=== PATIENT | female | born 1950 | race Caucasian/White ===

== ENCOUNTER 2017-04-13 18:38 | Inpatient (IN) | payer MEDICARE ==
[~2017-04-13] VITALS: Ht 162.5 cm; Wt 82.2 kg
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
--- NOTE | ~2017-04-13 | PR ---
[place], [place] PROGRESS NOTE [id number] UN[facility] #: [id number] ROOM: 310 DOCTOR: Shanda WASHINGTON,SORAIDA BIRTHDATE: [birth year] DOS: 04/20/2017 SUBJECTIVE: The patient seen and spoke with the staff. Per staff, the patient is doing okay, still somewhat paranoid and anxious, but is doing much better than before. She is coming out from her room more than in the past. The patient was in the day area. She said that she is feeling a "little better", looks a little relax, but still reports being paranoid, thinks people are talking about her and trying to harm her. She denied any side effects from the medication. She reports good sleep and appetite. MENTAL STATUS EXAMINATION: The patient was pleasant, cooperative, described her mood as "okay." Affect was flat, guarded. Thought process goal directed. No flight of ideas, loosening of association. She denied auditory or visual hallucination. She is still delusional, paranoid. She denied suicidal ideation, intent or plan. She also denied homicidal ideation, intent or plan. Insight and judgment poor to fair. ASSESSMENT: 1. Major depressive disorder, recurrent with psychotic features. 2. Rule out schizoaffective disorder. PLAN: 1. Continue current medication. Her Invega was increased yesterday. Seems to be doing well. We need to wait until the full effect of the medication. 2. Continue redirection. 3. Supportive care. SORAIDA WASHINGTON MD CM:PNTRANS [phone] Shanda WASHINGTON 04/21/17 1447 interface
--- NOTE | ~2017-04-13 | PR ---
[place], [place] PROGRESS NOTE NAME: CHELA JAIN UNIT #: [id number] ROOM: 310 DOCTOR: Shanda WASHINGTON,SORAIDA BIRTHDATE: [birth year] DOS: 04/17/2017 The patient seen and spoke with the staff. Per staff, the patient stays isolative, still paranoid, talks about and dying. The patient was in the day area. She said that she still feels paranoid, feels someone is planning to hurt her. She became very tearful in the process. She said that she is homeless, she does not have any place to go and she wants the team to help her in terms of her housing. She also is scared that someone may hurt her. She said that she has been taking her medication regularly and did not have any side effect. MENTAL STATUS EXAMINATION: The patient was pleasant, cooperative, tearful at times. Described her mood as "I don't know." Affect broad range. Thought process goal directed. No flight of ideas, loosening of association. She denied auditory or visual hallucination, but she is still delusional and paranoid. She denied suicidal ideation, intent or plan. She also denied homicidal ideation, intent or plan. ASSESSMENT: 1. Major depressive disorder, recurrent with psychotic feature. 2. Rule out schizoaffective disorder. PLAN: 1. Continue current medication and care. We have to give some time for the medication to start working in its full effect. 2. Continue redirection. 3. Supportive care. SORAIDA WASHINGTON MD CM:RAFAELA [phone] Shanda WASHINGTON 04/18/17 0205 interface
--- NOTE | ~2017-04-13 | PR ---
[place], [place] PROGRESS NOTE NAME: [facility]AIN [id number] UNIT #: [id number] ROOM: 310 DOCTOR: Shanda WASHINGTON,SORAIDA BIRTHDATE: [birth year] DOS: 04/19/2017 PSYCHIATRIC PROGRESS NOTE SUBJECTIVE: The patient seen and spoke with the staff. Per staff, the patient is still paranoid, at times, talked about people talking about her and they are following her. When I went to see the patient was in her room. She was doing a word puzzle. She said that she is not doing any good. She said that she feels like she is "possessed." She is taking her medication regularly. Still feels paranoid. She is delusional and she is upset about that fact. She denied any auditory or visual hallucination. MENTAL STATUS EXAMINATION: The patient was pleasant, cooperative. Described her mood as "not good." Affect was flat. Thought process goal directed. No flight of ideas, loosening of association. She denied auditory or visual hallucination. She is still delusional, paranoid. She denied suicidal ideation, intent or plan. She also denied homicidal ideation, intent or plan. Insight and judgment impaired. ASSESSMENT: Schizoaffective disorder, still psychotic and delusional. PLAN: 1. I will increase her Invega to 9 mg at night. 2. Continue other medication. 3. Continue redirection. SORAIDA WASHINGTON MD CM:RAFAELA [phone] Shanda WASHINGTON 04/20/17 0417 interface
--- NOTE | ~2017-04-13 | PR ---
[place], [place] PROGRESS NOTE [id number] UNIT #: [id number] ROOM: 310 DOCTOR: Shanda WASHINGTON,SORAIDA BIRTHDATE: [birth year] DOS: 04/25/2017 SUBJECTIVE: The patient seen and spoke with the staff. Per staff, the patient is doing well. Her mood is better. She is coming out more from her room and attending groups. Med compliant. The patient was pleasant and cooperative. She looks brighter. She was smiling. She said that "I am better, not anxious." She is still keep on saying that she do not know how she is feeling, but she acknowledges that she is much better than before and do not feel paranoid and not hearing voices anymore. She said her mood is better. Also, she reports good sleep and appetite. MENTAL STATUS EXAMINATION: Pleasant, cooperative. Described her mood as "better." Affect, mood congruent. Thought process goal directed. No flight of ideas, loosening of association. She denied auditory or visual hallucination. No delusion or paranoia noted. She denied suicidal ideation, intent or plan. She also denied any homicidal ideation, intent or plan. Insight and judgment fair. ASSESSMENT: 1. Major depressive disorder, recurrent with psychotic feature. 2. Rule out schizoaffective disorder. PLAN: 1. Continue current medication and care. 2. Continue redirection. 3. Supportive care. SORAIDA WASHINGTON MD CM:RAFAELA [phone] Shanda WASHINGTON 04/25/17 1304 interface
--- NOTE | ~2017-04-13 | PR ---
[place], [place] PROGRESS NOTE [facility]: [facility]AIN [id number] UNIT #: [id number] ROOM: 310 DOCTOR: Shanda WASHINGTON,SORAIDA BIRTHDATE: [birth year] DOS: 04/26/2017 SUBJECTIVE: The patient seen and spoke with the staff. Per staff, patient is doing well. No behavioral problems or issues. Much more interactive, med compliant. The patient was pleasant, cooperative. She was walking on the hallway, looks brighter and happier. She said that "I am same like yesterday." She denied any depressed mood or hopelessness. Denied any other neurovegetative signs or symptoms of depression. Denied any psychotic symptoms. Reports good sleep and appetite. MENTAL STATUS EXAMINATION: The patient was pleasant, cooperative. Described her mood as "good." Affect, mood congruent. Thought process goal-directed. No flight of ideas, loosening of association. She denied auditory or visual hallucination. No delusions or paranoia noted. She denied suicidal ideation, intent or plan. She also denied homicidal ideation, intent or plan. Insight and judgment fair. ASSESSMENT: 1. Major depressive disorder, recurrent with psychotic feature. 2. Schizophrenia, rule out schizoaffective disorder. PLAN: 1. Continue current medication and care. 2. Continue redirection. 3. Discharge planning. SORAIDA WASHINGTON MD CM:RAFAELA [phone] Shanda WASHINGTON 04/26/17 1448 interface
--- NOTE | ~2017-04-13 | PR ---
[place], [place] PROGRESS NOTE NAME: [id number] UNIT #: [id number] ROOM: 310 DOCTOR: Shanda WASHINGTON,SORAIDA BIRTHDATE: [birth year] DOS: 04/18/2017 PSYCHIATRIC PROGRESS NOTE SUBJECTIVE: The patient seen and spoke with the staff. Per staff, the patient slept well, but still paranoid and guarded and stayed to herself. The patient was pleasant, cooperative. She was actually at first in her room. She changed her clothes. Now, she is in a regular cloth. She said that "I don't know why it is happening to me." When I asked her to elaborate, she did not. She acknowledges that she still thinks something bad is going to happen and she does not know why she is feeling like that. She was not tearful or anxious today, though. She said that she is taking her medication regularly and did not have any side effect from the medication. She reports good sleep and appetite. MENTAL STATUS EXAMINATION: The patient was pleasant and cooperative. She described her mood as "okay." Affect was flat. Thought process goal directed. No flight of ideas, loosening of association. She denied auditory or visual hallucination. She is still delusional, paranoid. She denied suicidal ideation, intent or plan. She also denied homicidal ideation, intent or plan. Insight and judgment fair. ASSESSMENT: Major depressive disorder, recurrent with psychotic feature, rule out schizoaffective disorder. PLAN: 1. Continue current medication and care. 2. Continue redirection. 3. Encourage activity and groups. SORAIDA WASHINGTON MD CM:RAFAELA [phone] Shanda WASHINGTON 04/18/1732 interface
--- NOTE | ~2017-04-13 | DS ---
[place], [place] DISCHARGE SUMMARY [id number] UN[facility] #: [id number] ROOM: 310 DOCTOR: DALI MORENO BIRTHDATE: [birth year] DOS: 04/28/2017 CHIEF COMPLAINT: "I don't think I'll ever be the same." HISTORY OF PRESENT ILLNESS: She is a 66-year-old white female with a longstanding history of mental illness who was brought to the Emergency Room by her ex-. She felt that she was going downhill at home. She had been isolating herself to the home, was not enjoying things that she used to enjoy before. She was feeling paranoid and thought people were trying to harm her and she felt paralyzed by those feelings. She reported also depression, feeling down sad, helpless, hopeless and so her brought her in to the Emergency Room and she was admitted to the Behavioral Health Unit for medication stabilization. ALLERGIES: SHE IS ALLERGIC TO PENICILLIN. PAST MEDICAL HISTORY: Includes her psychiatric history as well as hypoglycemia. SUMMARY OF HOSPITAL COURSE: On admission, she was admitted for major depressive disorder with psychotic features, also to rule out schizoaffective disorder. Her Remeron was discontinued, she was started on Lexapro as the Remeron did not seem to be effective in treating her depression. Her Invega that she was previously on was continued while she was here at the hospital and she is also on vitamin D for vitamin D deficiency. She was found to have a positive UA culture and sensitivity, and she was started on an antibiotic to treat Proteus in her urine. She has steadily improved and was out in the common areas and she was interactive, alert, very much aware, has insight of her mental illness and feels that she will never be without some signs and symptoms, but she feels that those are manageable. She expressed and denied having any suicidal or homicidal ideation. MENTAL STATUS ON DISCHARGE: She is alert and oriented, pleasant and cooperative. Her mood and affect are bright, euthymic. She is looking forward to going home today. Short-term memory does have some gaps, but overall her memory is intact. DIAGNOSIS: Major depressive disorder, recurrent with psychotic features, also schizoaffective disorder. DISPOSITION: She will be discharged home into her own care. Her prescriptions have been electronically transmitted to her pharmacy with the exception of the vitamin D, script was printed and will be sent with her at discharge. [place], [place] DISCHARGE SUMMARY NAME: CHELA JAIN UNIT #: [id number] ROOM: 310 DOCTOR: DALI MORENO BIRTHDATE: [birth year] Dali Moreno NP CM:DISCHARG [phone] DALI MORENO 04/28/17 1155 interface
--- NOTE | ~2017-04-13 | PR ---
[place], [place] PROGRESS NOTE [id number] UNIT #: [id number] ROOM: 310 DOCTOR: Shanda WASHINGTON,SORAIDA BIRTHDATE: [birth year] DOS: 04/23/2017 PSYCHIATRIC PROGRESS NOTE SUBJECTIVE: The patient seen and spoke with the staff. Per staff, the patient is doing well. No behavior problems or issues. Took her medication and slept well last night. The patient was in her room. She reports sleeping well, said that the medication is helping her, but still she feels paranoid at times. She denied any side effect from the medication. Reports good sleep and appetite. MENTAL STATUS EXAMINATION: The patient was pleasant, cooperative, described her mood as "better." Affect guarded. Thought process goal directed. No flight of ideas or loosening of association. She denied auditory or visual hallucination. She still feels paranoid. Denied suicidal ideation, intent or plan. She also denied homicidal ideation, intent or plan. Insight and judgment fair. ASSESSMENT: Schizoaffective disorder. PLAN: 1. Continue current medication and care. 2. Continue redirection. SORAIDA WASHINGTON MD CM:RAFAELA [phone] Shanda WASHINGTON 04/23/17 2259 interface
--- NOTE | ~2017-04-13 | PR ---
[place], [place] PROGRESS NOTE [id number] #: [id number] ROOM: 310 DOCTOR: Shanda WASHINGTON,SORAIDA BIRTHDATE: [birth year] DOS: 04/16/2017 SUBJECTIVE: The patient seen and spoke with the staff. Per staff, the patient is taking her medication regularly, but isolated. I do not interact with anyone. Paranoid and delusional. No behavioral problems or issues. The patient was in her room. She was sitting on the bed when I asked her, why she is not coming out, she said that she does not want to come out like this. She said that she wanted to clean herself before she can go and get the breakfast. Nursing came and then encouraged her to go to eat her breakfast and asked her to go and clean herself afterwards. She reluctantly agreed. She reports poor sleep, but denied any other side effects from the medication. She seems to be very guarded and paranoid. MENTAL STATUS EXAMINATION: The patient was pleasant and cooperative. Described her mood as "okay." Affect was guarded. Thought process goal directed. No flight of ideas, loosening of association. She denied auditory or visual hallucination. She seems to be paranoid. There are no overt delusions noted. She denied suicidal ideation, intent or plan. She also denied homicidal ideation, intent or plan. Insight and judgment impaired. ASSESSMENT: 1. Major depressive disorder with psychotic features. 2. Rule out schizoaffective disorder. PLAN: 1. Continue current medication. 2. Continue redirection. 3. Supportive care. SORAIDA WASHINGTON MD CM:RAFAELA 46 Shanda WASHINGTON 04/17/1752 interface
--- NOTE | ~2017-04-13 | PR ---
[place], [place] PROGRESS NOTE NAME[id number] UNIT #: [id number] ROOM: 310 DOCTOR: Shanda WASHINGTON,SORAIDA BIRTHDATE: [birth year] DOS: 04/21/2017 PSYCHIATRIC PROGRESS NOTE SUBJECTIVE: The patient seen and spoke with the staff. Per staff, the patient is doing a little better, still paranoid, but more animated and interactive than before. She is taking her medication and did not have any side effect from the medication. The patient was pleasant, cooperative. She was in the day area. She looks a little bit disheveled. She said that she is feeling "better," but still feels like that people are talking about her and they are plotting against her. She reports good sleep and appetite. She acknowledges the medication is helping her. MENTAL STATUS EXAMINATION: The patient was pleasant and cooperative, described her mood as "okay." Affect, mood congruent, somewhat flat. Thought process goal directed. No flight of ideas or loosening of association. She denied auditory or visual hallucination. She is still delusional and paranoid. She denied suicidal ideation, intent or plan. She also denied homicidal ideation, intent or plan. ASSESSMENT: Schizoaffective disorder. PLAN: 1. Continue current medication and care. 2. Continue redirection. 3. Supportive care. SORAIDA WASHINGTON MD CM:RAFAELA [phone] Shanda WASHINGTON 04/21/17 1317 interface
--- NOTE | ~2017-04-13 | PR ---
[place], [place] PROGRESS NOTE [id number] UN[facility] #: [id number] ROOM: 310 DOCTOR: Shanda WASHINGTON,SORAIDA BIRTHDATE: [birth year] DOS: 04/24/2017 SUBJECTIVE: The patient seen and spoke with the staff. Per staff, the patient is doing better. Not as delusional as before, but still stay to himself. Medication compliant. No visual problems or issues. The patient was pleasant, cooperative. She was in the day area. When I brought it to the next room to talk with her, she said that she is still the same. When I asked that what does she mean, she said that she talked about having no emotion, but says that she does not feel paranoid anymore and the voices are also gone. She then acknowledges that overall she is doing better. She reports good sleep and appetite. Denied any side effect from the medication. MENTAL STATUS EXAMINATION: The patient was pleasant, cooperative. Described her mood as "affect flat." Thought process goal directed. No flight of ideas, loosening of association. She denied auditory or visual hallucination. No delusion or paranoia noted. She denied suicidal ideation, intent or plan. She also denied homicidal ideation, intent or plan. Insight and judgment fair. ASSESSMENT: Schizoaffective disorder. PLAN: 1. Continue current medication. Again, continue redirection. 2. Supportive care. SORAIDA WASHINGTON MD CM:RAFAELA 17 Shanda WASHINGTON 04/25/17 0454 interface
--- NOTE | ~2017-04-13 | PR ---
[place], [place] PROGRESS NOTE [id number] UNIT #: [id number] ROOM: 310 DOCTOR: Shanda WASHINGTON,SORAIDA BIRTHDATE: [birth year] DOS: 04/22/2017 PSYCHIATRIC PROGRESS NOTE SUBJECTIVE: The patient seen and spoke with the staff. Per staff, the patient is doing better than before, but still delusional and paranoid, stays to herself most of the time, slept well. The patient was pleasant, cooperative. She said that she is feeling better than before. Feels like the medication is helping her and her head is not as "clouded" as before. She reports good sleep and appetite. She denied any side effect from the medication. MENTAL STATUS EXAMINATION: The patient was pleasant, cooperative. described her mood as okay." Affect was flat. Thought process goal directed. No flight of ideas, loosening of association. She denied auditory or visual hallucination. She is still paranoid. She denied any suicidal ideation, intent or plan. She also denied homicidal ideation, intent or plan. ASSESSMENT: Schizoaffective disorder. PLAN: 1. Continue current medications and care. 2. Continue redirection. 3. Supportive care. SORAIDA WASHINGTON MD CM:PNCOOKIE 31 [phone] Shanda WASHINGTON 04/23/171706 interface
--- NOTE | ~2017-04-13 | PR ---
[place], [place] [facility]GR[id number] UN[facility] #: [id number] ROOM: 310 DOCTOR: Shanda WASHINGTON,SORAIDA BIRTHDATE: [birth year] DOS: 04/15/2017 The patient seen and spoke with the staff. Per staff, patient did not have any problems or issues. Took all of her medication and slept well. The patient was pleasant and cooperative. She said that she was feeling tired, but doing good otherwise. She denied any side effect from the medication. She reports good appetite. MENTAL STATUS EXAMINATION: The patient was pleasant and cooperative. Described her mood as "okay." Affect, mood congruent, guarded. Thought process goal directed. No flight of ideas or loosening of association. She reports auditory hallucinations, not command type. Denied visual hallucinations. She still feels paranoid, but denied suicidal ideation, intent or plan. She also denied homicidal ideation, intent or plan. Insight and judgment poor to fair. ASSESSMENT: 1. Major depressive disorder, recurrent without psychotic feature. 2. Rule out schizoaffective disorder. PLAN: 1. Continue current medication and care. 2. Continue redirection. SORAIDA WASHINGTON MD CM:RAFAELA 26 4 Shanda WASHINGTON [birth year] interface
--- NOTE | 2017-04-13 18:51 | NUR ---
PER [facility], PT HAS NOT HAD ANY MEDICATIONS FILLED SINCE .
--- NOTE | 2017-04-13 18:53 | NUR ---
CHELA JAIN a 66 year old F admitted via stretcher from the OTHER as a emergency 72 hr. hold admission. Arrived on unit at 1853. ALLERGIES: NKA. Admitted under the services of Dr. KEEGAN KENNEDY,DEANNA. A search was conducted and hazardous articles were removed. Client was oriented to the unit. PERRY SANDS
--- NOTE | 2017-04-13 19:16 | NUR ---
TREATMENT TEAM HELD TO DISCUSS PT CARE WITH THE FOLLOWING MEMBERS PRESENT: DR. ALLISON, RN, AT, & SW.
[2017-04-13 20:00] VITALS: BP 133/84
--- NOTE | 2017-04-13 21:22 | NUR ---
NOTIFIED DR GONZALEZ OF ADMISSION AND UPDATE. MEDICATION REC READY FOR REVIEW BUT CLIENT TAKES NO MEDICATION. DR GONZALEZ STATES DR GALICIA IS THE HOSPITALIST.
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
--- NOTE | 2017-04-13 23:11 | NUR ---
EYES CLOSED. RESP EASY NON LABORED AT THIS TIME. WILL MONITOR SLEEPING PATTERNS CLOSE SHE SAYS SHE HASN'T SLEPT IN OVER 20 HOURS
--- NOTE | 2017-04-14 01:24 | NUR ---
P1- DEPRESSION/PARANOIA I- TEACH COPING SKILLS, ORIENTED X'S 3, NO HALLUCINATIONS, IMPROVED SOCIALIZATION, EMOTIONAL SUPPORT P- MORE INTERACTION WITH PEOPLE, NO HALLUCINATIONS, NO PARANOIA OF AND TORTURE
--- NOTE | 2017-04-14 05:32 | NUR ---
SLEPT WELL PAST 2230PM. UP ONCE TO VOID. MISSED THE HAT. WILL CONTINUE TO TRY TO GET URINE FOR TESTING.
--- NOTE | 2017-04-14 05:33 | NUR ---
24 HR chart check completed.
--- NOTE | 2017-04-14 06:27 | NUR ---
CLIENT ASKED TO TALK WITH ME. 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 SAYS SHE NEEDS AN HEAVY CLEANER BECAUSE SOMEONE DUE TO MEDICATION SHE GAVE AND IT HASN'T BEEN GONE TO TRIAL. SHE THEN CHANGES SUBJECTS STATING SHE WAS SENT FROM ONE PLACE AND THE 2 MEN DROVE HER AROUND IN THE AMBULANCE TILL THEY DECIDED TO BRING HER HERE TO BE KILLED. UNABLE TO STAY ON ANY TOPIC AND THINKS WE ARE ALL LYING TO HER AND SHE KNOWS "SOMETHING IS GOING DOWN TODAY" BUT CAN NOT ELABORATE. EMOTIONAL SUPPORT REBUFFED. SHOWN TO THE DININGROOM AND TV TURNED ON. WILL MONITOR
[2017-04-14 07:40] LABS: BASO % 0.4 % (0.0-1.0); EOS % 0.4 % (1.0-4.0); HEMATOCRIT 42.6 % (37.0-47.0); HEMOGLOBIN 14.4 g/dl (12.0-16.0); LYMPH % 31.1 % (27.0-41.0); MEAN CELL VOLUME 93.8 fl (81.0-99.0); MEAN CORPUSCULAR HGB 31.7 pg (27.0-31.0); MEAN CORPUSCULAR HGB CONC 33.8 g/dl (33.0-37.0); MEAN PLATELET VOLUME 10.7 fl (9.6-12.3); MONO # 0.8 10*3/uL (0.1-1.0); MONO % 8.2 % (3.0-9.0); NEUT # 5.8 10*3/uL (2.3-7.9); NEUT % 59.6 % (47.0-73.0); PLATELET COUNT AUTOMATED 233 10*3/uL (130-400); RED BLOOD COUNT 4.54 10*6/uL (4.10-5.10); RED CELL DISTRI WIDTH 13.1 % (0-14.5); WHITE BLOOD COUNT 9.7 10*3/uL (4.8-10.8)
[2017-04-14 07:59] VITALS: BP 134/87
[2017-04-14 08:22] LABS: CHLORIDE 105 mmol/L (98-107); POTASSIUM 3.6 mmol/L (3.5-5.1); SODIUM 139 mmol/L (136-145)
[2017-04-14 08:37] LABS: ALBUMIN 3.6 gm/dl (3.1-4.5); ALKALINE PHOSPHATASE 78 U/L (45-117); BUN 11 mg/dl (7-24); CREATININE 0.81 mg/dL (0.55-1.02); SGOT/AST 32 IU/L (3-35); SGPT/ALT 46 U/L (12-78); THYROID STIM HORMONE (HS) 0.655 uIU/ml (0.358-4.75); TOTAL PROTEIN 7.4 gm/dL (6.4-8.2)
[2017-04-14 08:57] LABS: VITAMIN D, 25-HYDROXY 27.4 ng/mL (30-100)
[2017-04-14 10:08] LABS: BILIRUBIN NEGATIVE (NEGATIVE); BLOOD 1+ (NEGATIVE); CLARITY SL CLOUDY (CLEAR); COLOR YELLOW (YELLOW); GLUCOSE NEGATIVE (NEGATIVE); KETONE NEGATIVE (NEGATIVE); LEUKO ESTERASE 3+ (NEGATIVE); NITRITE POSITIVE (NEGATIVE); UROBILINOGEN 0.2 E.U./dl (0.2-1.0)
[2017-04-14 10:18] LABS: BACTERIA 3+; WBC TNTC wbc/hpf (0-5)
--- NOTE | 2017-04-14 10:45 | NUR ---
CHELA HAS BEEN NOTED TO BE ISOLATIVE TO HER ROOM. WHEN APPROACHED SHE THANKED STAFF QUICKLY AND WHISPERED, "I DON'T THINK THAT YOU ARE SUPPOSED TO BRING ME ANYTHING. I CAME HERE TO ." SHE IS NOTED TO BE EXPERIENCING AUDITORY HALLUCINATIONS AND QUESTIONED STAFF TO WHETHER OTHER PEOPLE HEAR VOICES. REALITY PRESENTED TO WHICH SHE IS MINIMALLY RECEPTIVE. VOICING BOTH PARANOID AND PERSECUTORY DELUSIONS. SUSPICIOUS OF OTHERS AND STATED TO STAFF, "I AM SO UGLY I DON'T WANT TO GO OUT THERE AND SCARE PEOPLE." SUPPORT AND 1:1 INTERACTION PROVIDED. SHE WAS REASSURED OF HER SAFETY, HOWEVER, SHE IS SOMEWHAT SUSPICIOUS OF STAFF WELL. MOOD IS DEPRESSED. REFER TO [facility] FLOWSHEET FOR SPECIFIC MONITORING.
--- NOTE | 2017-04-14 11:07 | NUR ---
PT refused to participate during recreation therapy groups this morning. PT encouraged to join this afternoon.
--- NOTE | 2017-04-14 12:34 | NUR ---
SW completed Psychosocial assessment. Pt denied any family contact. Pt stated that she can not return to her apartment. Pt refused to go to homeless retirement. Pt wants to be discharged to the street. Sw will work with to develop a better discharge plan.
--- NOTE | 2017-04-14 12:38 | NUR ---
Treatment Team was held to [facility] witht he following members present: Dr. Vasquez, AT, & SW.
--- NOTE | 2017-04-14 15:25 | NUR ---
PT refused to participate during recreation therapy group this afternoon.
[2017-04-14 20:08] VITALS: BP 153/86
--- NOTE | 2017-04-14 21:05 | NUR ---
ISOLATIVE AND PERSECUTORY. WHEN ASKED HOW SHE WAS DOING TODAY SHE AGAIN REPLIED "I AM HERE TO BY LETHAL INJECTION" UNABLE TO REDIRECT AND REBUFFED ANY AND ALL EMOTIONAL SUPPORT. REFUSED SNACK. WILL CONTINUE TO MONITOR FOR HALLUCINATIONS OR CHANGE IN MENTATION.
--- NOTE | 2017-04-15 06:40 | NUR ---
PT SLEPT GREATER THAN 8 HOURS THIS SHIFT. NO S/S OF DISTRESS NOTED. NO C/O PAIN. RESPIRATIONS EASY. [facility] FLOWSHEET FOR SPECIFIC MONITORING. SAFETY CHECKS MAINTAINED.
[2017-04-15 08:07] VITALS: BP 149/85
--- NOTE | 2017-04-15 10:08 | NUR ---
NOTIFIFED AT [phone] REGARDING PT URINE CULTURES RECEIVED. NO FURTHER ORDERS AT THIS TIME.
--- NOTE | 2017-04-15 10:58 | NUR ---
Treatment Team was held to discuss care with the following: Dr. Vasquez (phone), RN, ST, SW, & Director.
--- NOTE | 2017-04-15 11:09 | NUR ---
PT did not attend RT group this morning. PT was encouraged several times to join group but refused. PT stated she didnt feel up to leaving her bed and she may "scare" some of them.
--- NOTE | 2017-04-15 12:31 | NUR ---
PT REFUSED MONUROL XMULTIPLE ATTMEPTS MADE. EDUCATED PT ON MEDICINE AND ITS USE. PT STATED MULTIPLE TIMES "THERE'S GOT TO BE AN EASIER WAY TO TAKE ME OUT, PLEASE DON'T DO THIS I DON'T WANT TO BE IN PAIN." EDUCATED PT WITHOUT SUCCESS. WILL NOTIFY
--- NOTE | 2017-04-15 12:35 | NUR ---
NOTIFIED AT [phone] [facility] PT REFUSING MONUROL, THINKING THAT WE ARE TRYING TO TAKE HER OUT. PER HE WILL PUT SOMETHING ELSE IN.
--- NOTE | 2017-04-15 15:37 | NUR ---
PT ALERT TO PERSON AND TIME. PT RE-ORIENTED TO [place]. PT MED COMPLIANT WITH ALL PO PILLS. PT REFUSED TO DRINK 1X DOSE OF MONUROL STATING "THERE'S GOT TO BE AN EASIER WAY TO TAKE ME OUT, I DON'T WANT TO BE IN ANY PAIN" ATTEMPTED TO EDUCATE PT ON MEDICATION AND ITS USE. INTERVENTION INEFFECTIVE, PT REFUSED MONUROL. ADVISED DR ADAN REGARDING THIS MATTER, NEW ORDERS RECEIVED FOR PO PILL. PT MED COMPLIANT WITH PILL, PT DID STATE "THIS IS GOING TO BE BAD" ASKED PT TO ELABORATE ON MATTER, PT REFUSED STATING "I KNOW WHAT'S GOING ON." WHEN ASKED IF PT KNEW WHY SHE WAS HERE, PT STATED "YES B/C I'M ABOUT TO BE INCARCERATED." RE-ORIENTED PT TO SITUATION. PT PLEASANT WITH STAFF. PT DENIES ANY HALLUCIANTIONS, NO OVERT S/S NOTED. PT EXPERIENCING PARANOID DELUSIONS THINKING SHE IS GOING TO AND WE ARE TRYING TO KILL HER. NO HOMICIDAL/SUICIDAL THOUGHTS VOICED. PT ISOLATIVE TO ROOM. PT AMBUALTORY, GAIT STEADY. PT CONTINENT OF BOWEL AND BLADDER. PLAN IS TO CONTINUE TO MONITOR PT BEHAVIORS, REDIRECT PT WITH DIVERSIONAL ACTIVITIES WHEN NECESSARY, ENCOURAGE PT TO PARTICIPATE IN GROUPS,ACTIVTIES AND SOCIALIZATIONS.
--- NOTE | 2017-04-15 15:42 | NUR ---
Patient participated during first half of recreation therapy group this afternoon. Patient quiet and withdrawn from others while playing Tarisa. WHen 3rd game was over with patient left the room without telling staff and returned to her room.
[2017-04-15 20:00] VITALS: BP 146/88
--- NOTE | 2017-04-16 02:18 | NUR ---
24 HR chart check completed.
--- NOTE | 2017-04-16 06:43 | NUR ---
PT CONTINUES TO BE PARINOID OF MEDICATIONS, PASSIVE WISH, OBSESSIVE THOUGHTS OF DYING, ISOLATIVE TO ROOM AND SUSPICIOUS OF STAFF. MED COMPLIANT WITH MUCH COAXING. SLEPT 8 HOURS WITH OUT INTURRUPTION. SEE FLOW SHEET FOR SPECIFIC MONITORING.
[2017-04-16 07:58] VITALS: BP 136/63
--- NOTE | 2017-04-16 10:18 | NUR ---
SHIFT CHART CHECK COMPLETED.
--- NOTE | 2017-04-16 11:25 | NUR ---
Patient refused to participate during recreation therapy groups this morning. Patient withdrawn to room and not willing to join group.
--- NOTE | 2017-04-16 13:55 | NUR ---
PT ALERT TO PERSON,PLACE AND TIME. PT MED COMPLIANT WITH MINIMAL DIFFICULTY. PT ASKING "IS THAT REALLY A NICOTINE PATCH OR IS IT SOMETHING ELSE?" SHOWED PT THE PATCH AND THE PACKAGING, PT STATED "OK I'M JUST REALLY PARANOID YOU KNOW." PT EDUCATED ON MEDS AND THEIR USES. EDUCATION EFFECTIVE, PT MED COMPLIANT. PT ISOLATIVE TO ROOM, COMING OUT FOR MEALS AND VISITATION. PT ENCOURAGED TO PARTICIPATE IN GROUPS AND ACTIVITIES. PT DENIES ANY HOMICIDAL/SUICIDAL THOUGHTS STATING "I DON'T WANT TO KILL MYSELF, I JUST FEEL LIKE I'M GOING TO . PT RE-ASSURED THAT SHE IS SAFE. PT AMBULATORY THROUGHOUT UNIT, GAIT STEADY. PT CONTINENT OF BOWEL AND BLADDER. PLAN IS TO MONITOR PT BEHAVIORS ON Q15 MIN SAFETY CHECKS, ENCOURAGE PT TO PARTICIPATE IN GROUPS AND ACTIVITIES. ENCOURAGE PT TO VOICE PARANOID DELUSIONS TO STAFF AND PRESENT REALITY TO PT.
--- NOTE | 2017-04-16 14:36 | NUR ---
VANNESA faxed Civil Committment papers to [facility] [address] per Dr. Vasquez's request.
--- NOTE | 2017-04-16 14:37 | NUR ---
Sw spoke briefly with Ex- who came to visit. Ex- stated that Pt usually is in hospital a minimum of 2 weeks.
--- NOTE | 2017-04-16 15:46 | NUR ---
Patient refused participate during recreation therapy group despite several attempts of encouragement.
--- NOTE | 2017-04-16 18:33 | NUR ---
TREATMENT TEAM WAS HELD TO DISCUSS CARE WITH THE FOLLOWING PRESENT: DR. WASHINGTON (PHONE), RN, SW, & DIRECTOR.
--- NOTE | 2017-04-16 18:51 | NUR ---
VANNESA FILED CIVIL COMMITTMENT PAPERS WITH [facility] [address] PER DR. WASHINGTON'S INSTRUCTIONS. PAPERS WERE FAXED TO THE COURT.
--- NOTE | 2017-04-16 18:52 | NUR ---
SW [facility] COPY ON CHART. NURSING NOTIFIED AND DIRECTOR.
[2017-04-16 20:02] VITALS: BP 135/69
--- NOTE | 2017-04-16 20:30 | NUR ---
SW ASKED CAPACITOR ASSEMBLER TO FAX REFERRAL TO [facility] IN [facility].
--- NOTE | 2017-04-16 23:43 | NUR ---
24 HR chart check completed.
--- NOTE | 2017-04-17 06:11 | NUR ---
PT HAS BEEN OBSERVED ON Q 15 MIN CHECKS & HAS SLEPT QUIETLY PAST 2300.
[2017-04-17 07:46] VITALS: BP 133/93
--- NOTE | 2017-04-17 11:28 | NUR ---
Patient refused to participate during recreaiton therpy groups this morning. This staff made two attempts of encouraging her to join group activity--she continued to refuse. This staff suggested she utilize time doing activity instead of just sitting in her room. She agreed to doing a word search puzzle to occupy her time. She was again encouraged to join group activities later this afternoon.
--- NOTE | 2017-04-17 15:43 | NUR ---
Patient took some encouragement to join recreation therapy group this afternoon. She sat withdrawn from others and only spoke unless prompted. Patient identifying appropriate words during word games but returned to her room when others started craft.
--- NOTE | 2017-04-17 16:13 | NUR ---
Treatment Team was held to discuss care witht he following: Dr. Vasquez (phone), RN, AT, SW , and Director.
--- NOTE | 2017-04-17 16:33 | NUR ---
[facility] informing that [facility] were ready for picker/puller for Pt and hearing was shceduled for April 21 at 8am.
--- NOTE | 2017-04-17 16:34 | NUR ---
SW picked up papers at Probate court. SW served papers to PT. Pt has a copy of papers. Copy on chart.
--- NOTE | 2017-04-17 16:39 | NUR ---
VANNESA was given information by Nurse that Pt has [facility] - Nep[facility] ([phone]; address: [address] [facility] [address] ). VANNESA called Nephew and jumanaft VM with VANNESA's email address sothat he could scan [facility] . [facility]rett returned call. Dom is going on vacation tonight and would be availbale by cell phone or email. Pt is cooperative now and his signature is not needed but will keep informatio incase a change of events occur. Dom works closely with Pt's Mental Health Cm. Vannesa will see if Pt will accept [facility] services in home. Dom had this set up and ready to start and then Pt refused. Vannesa will keep Dom update to on Pt's condition. Pt receives services through [facility] and [facility].
--- NOTE | 2017-04-17 18:58 | NUR ---
PT ATE 100% OF ALL MEALS. COMPLIANT WITH MEDICATIONS THIS SHIFT. NO VOICED PARANOID THOUGHTS TO THIS RN ON 1:1.
[2017-04-17 20:00] VITALS: BP 138/71
--- NOTE | 2017-04-18 00:15 | NUR ---
24 HR chart check completed.
--- NOTE | 2017-04-18 06:35 | NUR ---
PT HAS BEEN OBSERVED ON Q 15 MIN CHECKS & HAS SLEPT QUIETLY THROUGHOUT THE SHIFT PAST 2099.
[2017-04-18 08:31] VITALS: BP 128/80
--- NOTE | 2017-04-18 15:30 | NUR ---
ON UNIT TO ASSESS PT.
--- NOTE | 2017-04-18 16:06 | NUR ---
PT ALERT TO PERSON,PLACE AND TIME. PT PARANOID AT TIMES, WHEN GIVEN AM MEDS, PT STATED "IS IT OK TO TAKE THESE, THEY AREN'T GOING TO SEDATE ME RIGHT?" EDUCATED PT ON MEDS, EDUCATION EFFECTIVE, PT MED COMPLIANT. PT EX- HERE FOR VISITATION MORIAH, PT REPORTED PLEASANT VISIT. PT AMBULATORY THROUGHOUT UNIT, GAIT STEADY. PT CONTINENT OF BOWEL AND BLADDER. PLAN IS TO MONITOR PT ON Q15 MIN CHECKS, ENCOURAGE PT TO VOICE FEELINGS OF PARANOIA, RE-ORIENT PT TO REALITY WITH EACH INTERACTION.
[2017-04-18 20:02] VITALS: BP 132/70
--- NOTE | 2017-04-18 22:41 | NUR ---
24 HR chart check completed.
--- NOTE | 2017-04-19 05:23 | NUR ---
PT HAS BEEN OBSERVED ON Q 15 MIN CHECKS & HAS SLEPT QUIETLY THROUGHOUT THE SHIFT PAST 2099.
[2017-04-19 08:36] VITALS: BP 124/82
--- NOTE | 2017-04-19 11:05 | NUR ---
ON UNIT TO ASSESS PT.
--- NOTE | 2017-04-19 11:14 | NUR ---
PT ALERT TO PERSON ONLY. PT MED COMPLIANT WITHOUT DIFFICULTY. PT CALM, WITH MINIMAL APISODES OF AGITAITON AND YELLING OUT, PT EASILY REDIRCETD. NO HALLUCIANTIONS OR DELUSIONS NOTED. PT STATED TO STAFF "I WANT TO KILL MYSELF" PT CONTRATCED FOR SAFTEY WITH STAFF. PT IN QUIET ROOM RESTING IN GERICHAIR WITH EYES CLOSED, PT GIVEN WARM BLANKETS. PT CONTINENT OF BOWEL AND BLADDER WITH EPISODES OF INCONTINENCE NOTED, CARE PROVIDED NEEDED. PLAN IS TO MONITOR PT ON Q15 MIN SAFTEY CHECKS, ENCOURAGE PT TO UTILIZE POSITIVE COPING SKILLS, ENCOURAGE PT TO PARTICIPATE IN GROUPS/ACTIVITIES.
--- NOTE | 2017-04-19 12:25 | NUR ---
PT ALERT TO PERSON,PLACE AND TIME. PT MED COMPLIANT WITHOUT DIFFIUCLTY. PT ANXIOUS AT TIMES, PACING THE HALLS. PT PARANOID AT TIMES, APPROACHING THIS NURSE AND ASKING "AM I DYING? I FEEL LIKE I'M DYING AND YOU AREN'T TELLING ME." ADVISED PT THAT SHE IS HERE TO GET HER MEDICAITONS ADJUSTED SO SHE CAN RETURN TO THE COMMUNITY. PT AMBULATORY THROUGHOUT UNIT, GAIT STEADY. PT CONTINENT OF BOWEL AND BLADDER. PT EX- HERE FOR AFTERNOON VISITATION. PLAN IS TO ENCOURAGE PT TO PARTICIPATE IN GROUPS AND ACTIVITIES, ENCOURAGE POSITIVE SOPING SKILLS, EDUCATE PT ON MEDICATIONS.
[2017-04-19 20:15] VITALS: BP 130/76
--- NOTE | 2017-04-19 22:58 | NUR ---
24 HR chart check completed.
--- NOTE | 2017-04-20 05:52 | NUR ---
PT WAS NOTED TO HAVE INCREASED SOCIALIZATION WITH SELECT PEERS AT THE BEGINNING OF THE SHIFT. STATED THAT SHE IS FEELING BETTER. STILL VOICES FEARS ABOUT . STATED THAT SHE IS SLEEPING GOOD AT NIGHT. ALERT & ORIENTED X 3. NOTED TO SLEEP QUIETLY PAST 2330.
[2017-04-20 10:06] VITALS: BP 118/86
--- NOTE | 2017-04-20 11:15 | NUR ---
ON UNIT TO ASSESS PT.
--- NOTE | 2017-04-20 11:28 | NUR ---
TREATMENT TEAM WAS HELD TO DISCUSS CARE WITH THE FOLLOWING: DR. WASHINGTON (PHONE), RN, AT, SW.
--- NOTE | 2017-04-20 11:38 | NUR ---
PT was in attendence for RT group this morning. PT was very social,activly joining into reminiscing through the years of her life. Telling of funny things shes done. We also discussed various things, such as what to do to help yourself get better.
--- NOTE | 2017-04-20 15:17 | NUR ---
PT ALERT TO PERSON,PLACE AND TIME. PT MED COMPLIANT WITHOUT DIFFICULTY. PT ASKING STAFF ABOUT HER COURT HEARING SCHEDULED FOR TOMORROW. PT EDUCATED ON THE ORDER OF USP AND THE PURPOSE OF THE COURT HEARING FOR TOMORROW. PT REPORTS HEARING OTHERS TALKING ABOUT HER AT TIMES. PRESENTED REALITY TO PT. NO HOMICIDAL/SUICIDAL THOUGHTS VOICED. PT PLEASANT AND INTERACTIVE WITH STAFF. PT AMBULATORY THROUGHOUT UNIT, GAIT STEADY. PT CONTINENT OF BOWEL AND BLADDER. PLAN IS TO PRESENT REALITY TO PT WITH EACH INTERACTION, MONITOR BEHAVIORS ON Q15 MIN SAFETY CHECKS.
--- NOTE | 2017-04-20 15:39 | NUR ---
PT did attend RT group this afternoon and did participate. PT had a negative attitude about her craft she was making. Tried to boost her attitude, but she wasnt happy about any of it. PT never smiles, negativity seems too common with PT
[2017-04-20 20:00] VITALS: BP 106/91
--- NOTE | 2017-04-20 21:00 | NUR ---
PT RECEIVED NO MEDS THIS PM. PT C/O BEING ALLERGIC TO APPLEJUICE. PT STATED THIS IS THE FIRST TIME SHE DRANK APPLEJUICE AND SHE HAS A CONTACT ALLERGY. NURSE ASSESSED PTS HANDS AND REASSURED HER IT WAS NOT AN ALLERGIC REACTION. PT HAD DRY SKIN ON HER WRISTS AND PT STATED IT WAS ITCHY. PT GIVEN HOUSE LOTION TO APPLY AFTER HER SHOWER THIS PM. PT EXPLAINED TO PT ALLERGIC REACTIONS AND PT REPLIED "WELL I AM NOT YET". PT VERBALIZED UNDERSTANDING.
--- NOTE | 2017-04-20 22:30 | NUR ---
PT RETIRED TO BED AT 2229.
--- NOTE | 2017-04-21 00:25 | NUR ---
24 HR chart check completed.
--- NOTE | 2017-04-21 06:12 | NUR ---
PT SLEPT PAST 2245. NO S/S OF DISTRESS NOTED. NO C/O PAIN. SEE [facility] FLOWSHEET FOR SPECIFIC MONITORING. Q15 MINUTE SAFETY CHECKS MAINTAINED.
[2017-04-21 08:01] VITALS: BP 100/57
--- NOTE | 2017-04-21 11:18 | NUR ---
ON UNIT TO ASSESS PT.
--- NOTE | 2017-04-21 13:17 | NUR ---
PT was in attendence for RT group this morning. PT participated but stated she did not feel well. PT stated she felt groggy today and needed toothpicks to keep eyelids open. PT about the importance of not staying in bed all day when you feel thaT way. To try and get yourself going and do things. PT stated she was going to try to do that today
--- NOTE | 2017-04-21 15:40 | NUR ---
PT did attend RT group this afternoon. PT also participated during group. PT seemed more awake and pleasent this afternoon
--- NOTE | 2017-04-21 15:41 | NUR ---
PT ALERT TO PERSON, PLACE AND TIME. PT MED COMPLIANT WITHOUT DIFFICUTLY. PT PLEASANT AND COOPERATIVE WITH STAFF. PT HAS BEEN REPORTING FEELING LESS PARANOID AND ANXIOUS. PT ABLE TO REDIRECT SELF. PT HAS SOCIALIZING WITH PEERS MORE. NO HOMICIDAL/SUICIDAL THOUGHTS REPORTED, PT DID STATE "WHEN I FIRST CAME, I THOUGHT YOU GUYS WERE TRYING TO POISON ME BUT I DON'T THINK THAT ANYMORE." PT AMBULATORY THROUGHOUT UNIT, GAIT STEADY. NO FURTHER C/O FEELING "LIKE MY BLOOD PRESSURE IS LOW". PT CONTINENT OF BOWEL AND BLADDER. PLAN IS TO CONTINUE PT TO UTILIZE POSITIVE COPING SKILLS, MONITOR PT BEHAVIORS ON Q15 MIN SAFETY CHECKS.
--- NOTE | 2017-04-21 17:37 | NUR ---
CIVIL COMITTMENT HEARING HELD. PT SPOKE WITH OPERATIONS RESEARCH DIRECTOR NARCISO SELLERS AND PT AGREED TO SIGN IN VOLUNTRAILY TO COMPLETE TREATMENT. OPERATIONS RESEARCH DIRECTOR MARLO ALSO RECOMMENDED THAT PT LOOK INTO GETTING A LEGAL GUARDIAN TO ASSIST HER IN MAKING HEALTH CARE DECISIONS. sw WILL ASSIST IN LOOKING INTO THIS AND GIVE HER NAMES OF AGENCIES TO ASSIST HER. VANNESA EXPLAINED VOLUNTARY ADMISSION FORM TO PT AND RECEIVED SIGNATURE. SW WITNESSED SIGNATURE AND NOTIFIED NURSE THAT PT IS A VOLUNTRAY ADMISSION NOW.
--- NOTE | 2017-04-21 18:22 | NUR ---
DR. WASHINGTON ON UNIT FOR HEARING. SW ME WITH AFTER HEARING. PT NOT READY FOR DISCHARGE.
[2017-04-21 19:49] VITALS: BP 140/72
--- NOTE | 2017-04-22 04:48 | NUR ---
24 HR chart check completed.
--- NOTE | 2017-04-22 05:11 | NUR ---
PT SLEPT PAST 2129 WITH NO INTERRUPTIONS. NO MEDICATIONS GIVEN DURING THIS SHIFT. NO S/S OF DISTRESS NOTED. NO C/O PAIN. SEE [facility] FLOWSHEET FOR SPECIFIC MONITORING.
[2017-04-22 08:00] VITALS: BP 113/75
--- NOTE | 2017-04-22 11:13 | NUR ---
TREATMENT TEAM WAS HLED TO DISCUSS CARE WITH THE FOLLOWING: DR. WASHINGTON (PHONE), RNs, AT, SW, AND MEDICAL STUDENT.
--- NOTE | 2017-04-22 11:20 | NUR ---
Patient participated during both recreation therapy groups this morning. Patient interactive with staff and with peers as well during the end of group. Patient becoming somewhat agitated while identifying daily goal stating "I JUST WANT TO FEEL BETTER AND GET OUT OF HERE." Patient encouraged to think positive about current situation and agreed.
--- NOTE | 2017-04-22 15:03 | NUR ---
Mood is depressed and Kristina has exhibited some paranoia @ times. She voices a belief that "they" are "going to do something." She does not further elaborate and then looks about suspiciously. @ the onset of this day she was noted to be anxious when sitting in the dining room. When I spoke with her she reports that she is anxious because she does not like to be around "so many people." Support was provided. She did calm later in the morning and was noted to shower and shampoo. She has not reported any hallucinatory experiences and thus far none are noted. Energy level is moderate. Appetite is good for meals. She is compliant with taking her medications. Refer to [facility] flow[facility] for specific monitoring.
--- NOTE | 2017-04-22 15:51 | NUR ---
PT did attend RT group this afternoon and participated. PT is attending all groups and socializing with other PTs. PT has been seen in activity room with others talking and watching TV
--- NOTE | 2017-04-22 15:57 | NUR ---
PT was in attendence for RT group for a short time but did not participate because she was asleep in her chair.
[2017-04-22 20:06] VITALS: BP 114/90
--- NOTE | 2017-04-23 05:09 | NUR ---
24 HR chart check completed.
--- NOTE | 2017-04-23 05:12 | NUR ---
PT MEDICATION COMPLIANT. SLEPT 8 HOURS. NO S/S OF DISTRESS NOTED. NO C/O PAIN. Q15 MINUTE SAFETY CHECKS MAINTAINED. SEE [facility] FLOWSHEET FOR SPECIFIC MONITORING.
[2017-04-23 07:49] VITALS: BP 122/74
--- NOTE | 2017-04-23 11:02 | NUR ---
PT did attend RT group today as well as participated. PT was outspoken of her dislike for the activity. Staff switched the activity around abit and PT as well as others enjoyed the activity much more. PT was laughing, smiling and joking with other PTs.
--- NOTE | 2017-04-23 15:31 | NUR ---
PT did attend RT group this afternoon as well as participated. PT wlaughing and encouraging to others during group. PT seem to really enjoy the trivia part of activities but also enjoyed the painting part
--- NOTE | 2017-04-23 15:42 | NUR ---
PT IS ALERT AND ORIENTED X4. MOOD IS STABLE AND EUTHYMIC. CALM AND COOPERATIVE THIS SHIFT. ATTENDING AND PARTICIPATING IN GROUP THERAPY. NO PARANOIA NOTED THIS SHIFT. DENIES ANY SI/HI. DENIES ANY SENSORY DISTURBANCES AND NONE ARE NOTED. MEDICATION COMPLIANT WITHOUT DIFFICULTY. POSITIVE INTERACTIONS WITH PEERS THROUGHOUT THE DAY. HAS BEEN OUT OF HER ROOM MOST OF THE SHIFT AND IN THE DAY ROOM. APPETITE GOOD FOR BREAKFAST AND LUNCH, ATE 100% OF BOTH MEALS. RESPIRATIONS EASY AND EVEN. TOLERATING MEDICATIONS WELL, DENIES ANY SIDE EFFECTS. NO ACUTE DISTRESS NOTED.
--- NOTE | 2017-04-23 17:41 | NUR ---
TREATMENT TEAM WAS HELD TO DISCUSS CARE WITH THE FOLLOWING: DR. WASHINGTON (PHONE), RNs, SW.
[2017-04-23 19:35] VITALS: BP 125/78
--- NOTE | 2017-04-23 23:05 | NUR ---
ISOLATIVE TO ROOM. NO MEDICATIONS REQUIRED. DECLINED 1:1 BUT AGREED TO TALK IF NEEDED LATER.
--- NOTE | 2017-04-24 03:24 | NUR ---
24 HR chart check completed.
--- NOTE | 2017-04-24 04:10 | NUR ---
P#1--DEPRESSION I-NEW COPING TECHNIQUES. DECREASE ANXIETY WITH SOCIALIZATION. MEDICATE PER DOCTORS ORDERS. P- NO HALLUCINATIONS, INCREASED SOCIALIZATION
--- NOTE | 2017-04-24 06:02 | NUR ---
SLEPT WELL PAST 2100
[2017-04-24 08:05] VITALS: BP 137/89
--- NOTE | 2017-04-24 11:06 | NUR ---
Patient participated during recreation therapy groups this morning. She was oriented to time, situation and place at the start of group. Patient was able to stay focused and concentrated on craft and interacted well with others. Patient was present through the duration of both groups.
--- NOTE | 2017-04-24 11:32 | NUR ---
Problem: Paranoia Intervention: On 1:1 patient was encouraged to speak about her thoughts and feelings. Pt states that her mood has somewhat improved but she reports "everyone here thinks knows that I am insane". Pt states that she is fearful that she will never get back to feeling better. Pt elaborated stating that the last time that she felt good was about 2 years ago. She says that she doesn't have motivation like she used to. Plan: Continue to engage patient in discussion regarding her thoughts and feelings. Provide patient with positive reinforcement when patient participates and engages in coversations with peers and staff.
--- NOTE | 2017-04-24 15:25 | NUR ---
Patient was appropriate, oriented, and interactive during recreation therapy group this afternoon. patient kept herself busy with a crossword puzzle while talking with staff and peers. Patient has been out of her room more today and involved with any/all activities and groups.
--- NOTE | 2017-04-24 16:52 | NUR ---
FOREIGN LANGUAGE STENOGRAPHER: FOLLOW UP APPOINTMENT WAS MADE FOR 05/04/17 AT 8:30 AM AT [facility] [place].
--- NOTE | 2017-04-24 17:03 | NUR ---
TREATMENT TEAM HELD TO DISCUSS CARE WITHT HE FOLLOWING: DR. WASHINGTON (PHONE), RNs, AT, SW, AND ITALOOR.
--- NOTE | 2017-04-24 17:05 | NUR ---
VANNESA SPOKE WITH pT AND Angel Luis CONCERNING DISCHARGE PLANS. eX HAS PAPERS FOR HOUSING FOR PT TO COMPLETE INORDER FOR HER TO STAY WITH HIM AT APARTMENT. SW EXPLAINED THAT PT CAN NOT COMPLETE THEM WHILE ON UNIT. MAHESHSBAND WILL HAVE HER COMPLETE THEM WHEN SHE GETS HOME. PT WISHES TO FOLLMery HIRSCH WITH [facility] [place] [facility] AND DR VALIENTE OF [place].
[2017-04-24 20:00] VITALS: BP 119/59
--- NOTE | 2017-04-24 20:48 | NUR ---
GROUP DISCUSSION REGARDING SELF WORTH. GOOD INTERACTION FROM CLIENT. NO VERBALIZATION OF AUDITORY HALLUCINATIONS. HOPELESS/HELPLESS PERSONNA REMAINS PREVELANT.
--- NOTE | 2017-04-25 04:13 | NUR ---
24 HR chart check completed.
--- NOTE | 2017-04-25 06:21 | NUR ---
SLEPT WELL ALL SHIFT. MOVES SELF IN BED. NO PROBLEMS
[2017-04-25 08:02] VITALS: BP 111/66
--- NOTE | 2017-04-25 09:37 | NUR ---
Pt actively participating in group. Compliant with morning medications. Appetite is good. Pt ate 100% of breakfast. Mood continues to be depressed, affect is blunted but she does attempt to particpate in milieu rather than staying in her room without the need for encouragement from staff. No paranoia observed or reported from patient this shift.
--- NOTE | 2017-04-25 10:57 | NUR ---
Patient participated during recreation therapy groups this morning. Patient again much more pleasant and oriented this morning to place, time and situation. Patient following along to exercise group and independent with craft group. Patient bringing up topics of conversation and stating "I'm going to start crafting at home for my therapy." Patient talkative with staff and peers. Patient helping clean up after painting and helping others as well.
--- NOTE | 2017-04-25 15:22 | NUR ---
Patient again improving during each group. Patient pleasant and cooperative during group session this afternoon. Patient also able to keep herself busy when not in group, asking for leisure activities. Patient also volunteered to call the [employer] and help other peers during group activity. Patient hopeful for discharge early next week and goal oriented.
--- NOTE | 2017-04-25 18:19 | NUR ---
PT ATE 100% OF ALL MEALS TODAY. SHE HAS BEEN PARTICIPATING IN [place]IEU, ENGAGING IN COVERSATION WITH PEERS AND HAS A BRIGHTER AFFECT THAN YESTERDAY.
[2017-04-25 19:53] VITALS: BP 108/52
--- NOTE | 2017-04-26 05:32 | NUR ---
24 HR chart check completed.
--- NOTE | 2017-04-26 05:59 | NUR ---
PT SLEPT THOUGHOUT THE NIGHT 8 HOURS COLLECTIVLY, MED COMPLIANT WITH OUT DIFFICULTY. PLESANT AND COOPERATIVE WITH ALL ASPECTS OF CARE.
[2017-04-26 07:55] VITALS: BP 132/74
--- NOTE | 2017-04-26 11:45 | NUR ---
PATIENT COMPLAINED OF BURNING ON URINATION, ORDER IN PLACE FOR UA/C&S. URINE COLLECTED VIA CLEAN CATCH. CLOUDY STRAW YELLOW WITH SEDIMENT NOTED. SPECIMEN SENT TO LAB.
[2017-04-26 11:58] LABS: BILIRUBIN NEGATIVE (NEGATIVE); BLOOD TRACE-INTACT (NEGATIVE); CLARITY CLOUDY (CLEAR); COLOR YELLOW (YELLOW); GLUCOSE NEGATIVE (NEGATIVE); KETONE NEGATIVE (NEGATIVE); LEUKO ESTERASE 3+ (NEGATIVE); NITRITE NEGATIVE (NEGATIVE); PH 6.5 (5.0-9.0); SPECIFIC GRAVITY <= 1.005 (1.005-1.030); UROBILINOGEN 0.2 E.U./dl (0.2-1.0)
[2017-04-26 12:31] LABS: BACTERIA 3+; EPITHELIAL CELLS 20-30; WBC TNTC wbc/hpf (0-5)
--- NOTE | 2017-04-26 12:39 | NUR ---
DR. REILLY NOTIFIED OF URINE RESULTS AND ALLERGIES TO PCN AT THIS TIME.
--- NOTE | 2017-04-26 12:40 | NUR ---
PT attended and participated during group activity this morning. PT very pleasent and cooperative during group. PT stated she hoped to go home Thursday. Very much enjoyed coffee and trivia this morning
--- NOTE | 2017-04-26 14:42 | NUR ---
PATIENT IS ALERT AND ORIENT TO PERSON, PALCE AND TIME, ABLE TO VOICE NEEDS. MOOD IS STABLE, THOUGHT PROCESS IS ORGANIZED AND GOAL DIRECTED. DENIES ANY HALLUCINATIONS, DELUSIONS OR HI/SI. PATIENT IS CALM, COOPERATIVE WITH STAFF AND OTHER PATIENTS. INTERACTIVE IN GROUP SESSIONS. PATIENT HAS GOOD APPETITE WITH ADEQUATE FLUIDS. CONTINENT OF BOWEL AND BLADDER. CURRENTLY ON ABT FOR UTI. Q 15 MINUTE SAFETY CHECKS. MEDICATION EDUCATIONS PROVIDED AND MED COMPLIANT. DENIES ANY PAIN OR DISCOMFORT. PLAN IS T CONTINUE PROVIDING MEDICATION EDUCATIONS, MONITOR MED COMPLIANT, OFFER 1:1 TO EXPRESS FEELING AND ENCOURAGE GROUP PARTICIPATION.
--- NOTE | 2017-04-26 15:47 | NUR ---
PT did attend RT group this afternoon as well as participated. PT was not real excited with the craft we did this afternoon and choose to quit about have way through it. The staff has noticed this PT is hard on herself when doing a craft or talking about her looks there is low self esteem. She states her craft is ugly or terrible, when it looks rather good
[2017-04-26 16:57] LABS: BASO % 0.3 % (0.0-1.0); EOS # 0.1 10*3/uL (0.0-0.4); EOS % 0.9 % (1.0-4.0); HEMATOCRIT 37.2 % (37.0-47.0); HEMOGLOBIN 12.4 g/dl (12.0-16.0); LYMPH # 3.3 10*3/uL (1.3-4.4); LYMPH % 35.8 % (27.0-41.0); MEAN CELL VOLUME 95.1 fl (81.0-99.0); MEAN CORPUSCULAR HGB 31.7 pg (27.0-31.0); MEAN CORPUSCULAR HGB CONC 33.3 g/dl (33.0-37.0); MEAN PLATELET VOLUME 11.1 fl (9.6-12.3); MONO # 0.8 10*3/uL (0.1-1.0); MONO % 8.3 % (3.0-9.0); NEUT % 54.5 % (47.0-73.0); PLATELET COUNT AUTOMATED 170 10*3/uL (130-400); RED BLOOD COUNT 3.91 10*6/uL (4.10-5.10); RED CELL DISTRI WIDTH 12.9 % (0-14.5); WHITE BLOOD COUNT 9.2 10*3/uL (4.8-10.8)
[2017-04-26 17:14] LABS: ALBUMIN 3.4 gm/dl (3.1-4.5); ALKALINE PHOSPHATASE 73 U/L (45-117); BUN 19 mg/dl (7-24); CHLORIDE 102 mmol/L (98-107); CREATININE 0.65 mg/dL (0.55-1.02); MAGNESIUM 2.1 mg/dL (1.5-2.1); POTASSIUM 4.4 mmol/L (3.5-5.1); SGOT/AST 19 IU/L (3-35); SGPT/ALT 42 U/L (12-78); SODIUM 140 mmol/L (136-145); TOTAL PROTEIN 6.7 gm/dL (6.4-8.2)
[2017-04-26 19:47] VITALS: BP 108/60
--- NOTE | 2017-04-27 00:58 | NUR ---
24 HR chart check completed.
--- NOTE | 2017-04-27 06:25 | NUR ---
MED COMPLIANT WITH COAXING. HESITANT TO TAKE ANTIBIOTICS DUE TO PAST ALLERGIES. MED EDUCATION PERFORMED. PT CONSUMED HS SNACK, SHOWERED, PARTICIPATED IN GROUP. SLEPT 8 HOURS WITH OUT INTURRUPTION. SEE FLOW SHEET FOR SPECIFIC MONITORING.
[2017-04-27 07:57] VITALS: BP 129/82
--- NOTE | 2017-04-27 13:22 | NUR ---
Patient participated during both recreation therapy groups this morning. Patient talkative and appropriate with others. Patient identifying daily goal as being able to stay uplifted. Patient identifying coping skills during this time as well. Patient laughing and interactive with group during reminiscing/trivia and identifying current events. Patient looking forward to discharge.
--- NOTE | 2017-04-27 14:46 | NUR ---
Elvia is compliant with prescribed medications and reports that she is feeling "ok." She is noted to continue to exhibit some paranoia @ times during time spent with staff, but also minimizes this when questioned. She does report that she is sleeping "better." Denies any sensory disturbances when questioned. She has attended scheduled groups and states an understanding of the importance of exploring alternative ways to cope. She is expressing a desire for discharge and was encouraged to discuss this with the psychiatrist when he visits. Will continue to monitor compliance, sleep, hallucinatory activity, group attendance and coping abilities. Also will continue to educate on prescribed medications and discuss the importance of compliance post discharge. Refer to [facility] flowsheet for specific monitoring.
--- NOTE | 2017-04-27 15:00 | NUR ---
To correct the previous note, Elvia did refuse to take her prescribed Macrobid reporting that she was "already treated for that."
--- NOTE | 2017-04-27 15:48 | NUR ---
Patient participated during recreation therapy group this afternoon. Patient stating "I'm in a better mood this afternoon." Patient very helpful to this staff and learning the benefits to art therapy and how she can utilize this as a positive coping skill for when she returns home.
--- NOTE | 2017-04-27 19:38 | NUR ---
TREATMENT TEAM WAS HELD TO DISCUSS CARE WITHT HE FOLLOWING: DR. ALLISON, RNs, SW, AND DIRECTOR. DR. ALLISON PLANNING DISCHARGE FOR .
--- NOTE | 2017-04-27 19:39 | NUR ---
SW LEFT VM FOR EX JEYSON THAT HE COULD SCRAPER TENDER PT AROUND 12:30PM FOR DISCHARGE.
[2017-04-27 19:58] VITALS: BP 143/66
--- NOTE | 2017-04-27 20:00 | NUR ---
WATCHING TV. ATE SNACK. GAIT STEADY. STATES "DAY GOOD". NO COMPLAINTS NOTED. STEADY GAIT. ENCOURAGED TO CALL STAFF IF SHE NEEDS ANYTHING.
--- NOTE | 2017-04-28 00:30 | NUR ---
24 HR chart check completed.
--- NOTE | 2017-04-28 02:44 | NUR ---
P-1 DEPRESSION I--GROUP THERAPY, COPING SKILLS, MEDICATION PER DOCTORS ORDERS P--DECREASE DEPRESSION, IMPROVED COPING SKILLS
[2017-04-28] MEDS ORDERED: Vitamin D PO (08:47)
[2017-04-28] MEDS ORDERED: LEXAPRO10 MG PO (08:47)
[2017-04-28] MEDS ORDERED: INVEGA9 MG PO (08:47)
[2017-04-28] MEDS ORDERED: AMINOPHYLLIN200 MG PO (09:01)
[2017-04-28 09:20] VITALS: BP 127/72
--- NOTE | 2017-04-28 10:53 | NUR ---
PATIENT IS ALERT AND ORIENTED X4. PLEASANT AND COOPERATIVE WITH STAFF. POSITIVE PEER INTERACTIONS NOTED. ATTENDING AND PARTICIPATING IN GROUP THERAPY. DENIES ANY PARANOIA OR DELUSIONS AND NONE ARE NOTED. NO HALLUCINATIONS OR ABNORMAL BEHAVIORS NOTED. VERBALIZES GOOD SLEEP LAST NIGHT. STATES SHE IS "FEELING MUCH BETTER, I'M READY TO GO HOME NOW." DENIES ANY SI/HI. MOOD IS STABLE AND EUTHYMIC WITH APPROPRAITE AFFECT. MEDICATION COMPLIANT WITHOUT DIFFICULTY. MEDICATIONS AND D/C INSTRUCTIONS REVIEWED WITH PATIENT, PT ABLE TO VERBALIZE UNDERSTANDING OF ALL WITH ALL QUESTIONS ANWSERED. RESPIRATIONS EASY AND EVEN. NO ACUTE DISTRESS NOTED.
--- NOTE | 2017-04-28 11:52 | NUR ---
Patient goal oriented during recreation therapy groups this morning. Identifying daily goal as "Getting home and getting into a routine." Patient following along during exercise group and participated during activity game. Patient talkative and looking forward to her discharge. Patient did meet with this staff after group and becomming tearful about thinking about returning home, stated "I'm just hoping I can feel even better and get into my routine." Emotional support provided and she was able to keep some breaths and calm herself down (commended for using appropriate coping skills).
--- NOTE | 2017-04-28 20:50 | NUR ---
TREATMENT TEAM WAS HELD TO DISCUSS DISCHARGE WITHTHE FOLLOWING: DR. ALLISON, RNs, AT, SW, AND MEDICAL STUDENT. DR. ALLISON IS DISCHARGING PT TODAY.
--- NOTE | 2017-04-28 20:51 | NUR ---
PT WAS DISCHARGE HOME WITH POP BENÍTEZ. FO[facility]UP IS [facility] AND DR VALIENTE.
== END 2017-04-28 12:57 | disposition home or self-care (01) | DRG 885 ==
LOC: 3N 18:38
PROVIDERS: Internal Medicine Nephrology; Psychiatry & Neurology Psychiatry; ADMIT Psychiatry & Neurology Psychiatry
DX: F25.9 Schizoaffective disorder, unspecified (principal); E11.9 Type 2 diabetes mellitus without complications; N39.0 Urinary tract infection, site not specified; E66.9 Obesity, unspecified; F17.200 Nicotine dependence, unspecified, uncomplicated; E55.9 Vitamin D deficiency, unspecified; Z88.0 Allergy status to penicillin; Z68.31 Body mass index [BMI] 31.0-31.9, adult; Z79.84 Long term (current) use of oral hypoglycemic drugs; Z91.018 Allergy to other foods; F22 Delusional disorders

== ENCOUNTER 2018-02-18 16:24 | Inpatient (IN) | payer MEDICARE ==
[~2018-02-18] VITALS: Ht 162.5 cm; Wt 81.2 kg
--- NOTE | ~2018-02-18 | DS ---
[place], [place] DISCHARGE SUMMARY [id number] #: [id number] ROOM: 311 DOCTOR: DEANNA ALLISON MD BIRTHDATE: [birth year] DOS: 02/26/2018 CHIEF COMPLAINT: "Oh, you know why I am here, they all want me , I am going to ." HISTORY OF PRESENT ILLNESS: This is a 67-year-old white female who was sent here on an involuntary basis from [facility]. The patient had presented there threatening to overdose on her Seroquel. She does believe that she is going to be euthanized soon. She feels that no one in her family loves her and feels that her son wants her to be . 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 Upon presentation to the hospital, she was found to be extremely delusional and very depressed. She felt that the only way out of this was to take her own life. She was admitted to the [facility] to rule out further organic factors, to attempt to stabilize on medication and then to return to the least restrictive environment when psychiatrically stable. PAST MEDICAL HISTORY: Remarkable for diabetes, hyperlipidemia, hypertension, spastic bladder, nicotine abuse, vitamin D deficiency and a reported history of depression and schizophrenia. SOCIAL HISTORY: She does not drink alcohol. She does not use illicit drugs. She has been a cigarette smoker since the age of 13 and is currently still smoking cigarettes. ALLERGIES: Listed to PENICILLIN and APPLE JUICE. SUMMARY OF HOSPITAL COURSE: The patient was admitted to the unit where her Lexapro was discontinued and Remeron 15 mg at bedtime was started. Additionally, her Invega was discontinued in lieu of Latuda 40 mg at bedtime, Latuda was rapidly increased from 40 to 80 and subsequently maintained at 120 mg at bedtime. Eventually, it became obvious that the psychosis was so prevalent and unyielding to the current medicines that the Latuda was augmented with the Invega. This did impact positively on her and for the first time the delusional system broke and she was able to recognize that she was delusional. She, however, complained of daytime somnolence and requested that her Remeron be discontinued, which was and this did alleviate the daytime somnolence. Given the fact that the delusions were so prevalent much of her unhappiness seemed to be a direct cause of the delusions and I do not think she necessarily requires antidepressant intervention. The Latuda itself as a mood stabilizer has an antidepressant efficacy that it should help her stay out of the depression. The patient tolerated the combination of Invega and Latuda well. There was no tardive dyskinesia, extrapyramidal symptoms, sedation, somnolence or other side effects. She voiced a willingness and a readiness to return home and was discharged then home on February 26. MENTAL STATUS AT DISCHARGE: She is alert and oriented x 3. Mood is euthymic. Affect appropriate. No elle or hypomania was noted. There were no overt auditory or visual hallucinations. Memory for the most part was intact. [place], [place] DISCHARGE SUMMARY NAME: CHELA JAIN UNIT #: [id number] ROOM: [facility] DOCTOR: DEANNA ALLISON MD BIRTHDATE: [birth year] FINAL DIAGNOSIS: Schizoaffective disorder. DISPOSITION: To return home. PLAN: All of her prescriptions have been E-scribed to [facility]. She is medically and psychiatrically stable at discharge and her biopsychosocial needs are adequately being met by her family and the community at large. DEANNA ALLISON MD CM:KATIUSKA [id number] DEANNA ALLISON MD 02/26/181903 interface
--- NOTE | ~2018-02-18 | PR ---
[place], [place] PROGRESS NOTE NAME: CHELA JAIN UNIT #: [id number] ROOM: 311 DOCTOR: SORAIDA WASHINGTON MD BIRTHDATE: [birth year] DOS: 02/21/2018 PSYCHIATRIC PROGRESS NOTE SUBJECTIVE: Patient seen and spoke with the staff. Per staff, patient is still paranoid, isolative, stays on herself. She believes that she was brought into the hospital so that she can be euthanized. She is compliant with her medication. Patient was walking on the hallway to go to the dining area. She reports being depressed and down. She said that she feels like she is possessed and talked about fear of being euthanized. She said that she is taking her medication regularly and did not have any side effect from the medication. MENTAL STATUS EXAMINATION: Pleasant, cooperative. Describes her mood as "down." Affect was flat, constricted. Thought process goal directed. No flight of ideas, loosening of association. She denied auditory or visual hallucinations. She is still very delusional and paranoid. She denied suicidal ideation, intent or plan. She also denied homicidal ideation, intent or plan. Insight and judgment impaired. PLAN: 1. Continue current medication and care. 2. Continue redirection. 3. Encourage activity and groups. 4. Final medication management and discharge plan by the regular team. SORAIDA WASHINGTON MD CM:PNTRANS [id number] SORAIDA WASHINGTON MD 02/22/18 0017 interface
--- NOTE | ~2018-02-18 | PR ---
[place], [place] PROGRESS NOTE [id number] UNIT #: [id number] ROOM: 311 DOCTOR: GRICEL GUSMAN DO BIRTHDATE: [birth year] DOS: 02/23/2018 PSYCHIATRIC PROGRESS NOTE CHIEF COMPLAINT: "You know what is going on here, you know plan for me." SUMMARY OF VISIT: A 67-year-old female was interviewed while sitting in a chair in the family therapy room. The patient complains about having no taste for food. We mentioned zinc to be given to help with the taste and the patient states while you would know, the patient appears frustrated and irritated, states no one has told her the game plan. She used to live in [place], but mentioned that she did not go home anymore. She becomes tearful during the interview and states she cannot connect with anyone anymore because no one wants to do anything with her and she even feels that way at home. She claims she is making a fool of herself. The patient appears to be also staff splitting and is very much isolating herself from others. Per nursing staff, the patient has been very paranoid and will not eat in the dining abum with others and refuses group therapy. The patient has been having auditory and visual hallucinations and thought people wanted her to go out at night. The patient also believes she is a sexual predator. She slept about 7 hours last night. MENTAL STATUS EXAMINATION: She is alert and oriented to person, place, and time. Mood is irritated and angry. Affect is dysphoric. She is rejecting any form of help from staff. She is having visual and auditory hallucinations that involves her believing people are telling her to do things and that others are talking about her. She is very delusional and paranoid, making herself isolate herself from others. She is anxious and depressed. There is no elle or hypomania. Short-term memory remains intact. PLAN: 1. Zinc 220 mg q.a.m. regarding the decrease in the taste buds of food. 2. Continue current psychiatric medication regimen. 3. We will continue to encourage the patient to engage in individual and jacob milieu activity, returning to the least restrictive environment and psychiatrically stable. ADDENDUM Dr. Allison 03/03 03:30 p.m.: Above note reviewed. Agree with observations, recommendations, and overall treatment plan. Gricel Gusman DO [place], [place] PROGRESS NOTE NAME: CHELA JAIN UNIT #: [id number] ROOM: 311 DOCTOR: GRICEL GUSMAN DO BIRTHDATE: [birth year] DEANNA ALLISON MD CM:PNTRANS 0930 T: GRICEL GUSMAN DO 03/03/18 1553 LOLY [email or web address].LUMAR
--- NOTE | ~2018-02-18 | PR ---
[place], [place] PROGRESS NOTE NAME: CHELA JAIN UNIT #: [id number] ROOM: 311 DOCTOR: GRICEL GUSMAN DO BIRTHDATE: [birth year] DOS: 02/24/2018 CHIEF COMPLAINT: "Feeling inside then I will not be here." SUMMARY OF VISIT: A 67-year-old female interviewed while sitting in the dining baum at the table by herself. She states that she has a feeling inside of her that is making her be in this place. She reports that the feeling is like something that is controlling her, but it is not depression. She expresses that she thinks it is some of her delusional thinking. The patient is concerned regarding where she will live and her financials. She mentioned that she was living with a boyfriend named Brandt, but she is not sure if she will be going back with him or a homeless fci. She voices she would like to know where she completely lost track of her family. Per nursing staff, the patient slept over 8 hours last night and the patient has expressed to nursing staff that she feels abandoned by family. The patient is participating now actively in group therapy. MENTAL STATUS EXAMINATION: She is alert and oriented to person, place, and time. Mood is tearful and depressed with anxious overtones. The patient is paranoid and has delusional thought process. The patient is verbalizing awareness that she has delusional thinking. There is no elle or hypomania. Short-term memory is mostly intact. PLAN: 1. Invega 3 mg q.a.m. 2. Social work is involved regarding patient's living situation. 3. We will continue to encourage the patient to engage in individual and jacob milieu activity, returning to the least restrictive environment when psychiatrically stable. ADDENDUM Dr. Allison 03/03 03:30 p.m.: Above note reviewed. Agree with observations, recommendations, and overall treatment plan. Gricel Gusman DO [place], [place] PROGRESS NOTE NAME: CHELA JAIN UNIT #: [id number] ROOM: 311 DOCTOR: GRICEL GUSMAN DOTE: [birth year] DEANNA ALLISON MD CM:RAFAELA 1102 T: GRICEL GUSMAN DO 03/03/18 1554 LOLY BHATIA.R
--- NOTE | ~2018-02-18 | PR ---
[place], [place] PROGRESS NOTE NAME: CHELA AJIN UNIT #: [id number] ROOM: 311 DOCTOR: GRICEL GUSMAN DO BIRTHDATE: [birth year] DOS: 02/25/2018 CHIEF COMPLAINT: "The same a lot sedated, not good." SUMMARY OF VISIT: A 67-year-old female interviewed while sitting in the dining baum next to another patient. She reports that she feels very sedated and when she woke up this morning, she was awake, but then she realized she was really not. She states that she believes that the Latuda is okay, but the Remeron is making her feel this way. The patient informed us that Brandt, who is believed to be her boyfriend, is going to be taking her out of here when she is discharged, so she does not go to a homeless residential. Per nursing staff, the patient was playing cards with peers yesterday. The patient also slept over 8 hours last night. MENTAL STATUS EXAMINATION: She is alert and oriented to person, place, and time. Mood is more euthymic. Affect is more appropriate. The patient is interacting with others on the unit. The patient's delusional thought processes are still present, but are improving and she is becoming more aware of her situation. There is no elle or hypomania. There are no agitation. There is no visual or auditory hallucinations. Short term memory is intact. PLAN: 1. Discontinue Remeron. 2. We will engage in individual and jacob milieu activity with the plan to return to the least restrictive environment when psychiatrically stable. ADDENDUM Dr. Allison 03/03 03:30 p.m.: Above note reviewed. Agree with observations, recommendations, and overall treatment plan. Gricel Gusman DO [place], [place] PROGRESS NOTE NAME: CHELA JAIN UNIT #: [id number] ROOM: 311 DOCTOR: GRICEL GUSMAN DO BIRTHDATE: [birth year] DEANNA ALLISON MD CM:PNTRANS 1109 T: GRICEL GUSMAN DO 03/03/18 1554 LOLY BHATIA.R
--- NOTE | ~2018-02-18 | PR ---
[place], [place] PROGRESS NOTE NAME: CHELA JAIN UNIT #: [id number] ROOM: 311 DOCTOR: DEANNA ALLISON MD BIRTHDATE: [birth year] DOS: 02/22/2018 CHIEF COMPLAINT: "So is there any hope for me or will this be yet." SUMMARY OF THE VISIT: The patient was interviewed as she was sitting in the dining area, finishing her breakfast. She engaged readily in conversation. She did report to me that she is feeling better than she did upon admission, but still was rather fragmented and disjointed and nihilistic in her thinking. She is, however, better than she was upon admission and is able to engage more readily in meaningful conversation. She convincingly denies any medication side effects and reports that overall she is feeling better. MENTAL STATUS: She is alert and oriented to self, place, and very approximate to time. Mood does seem to be solidly trending towards euthymia and affect is much more appropriate. There is no symptom suggestive of elle or hypomania. She does remain delusional, but is able to challenge herself and redirect herself as well as be redirected by others. Memory for the most part is intact. PLAN: I will adjust both of her Remeron and her Latuda bringing the Remeron from 15 to 22.5 mg at bedtime and increasing the Latuda from 80 mg at bedtime to 120 mg at bedtime. We will continue to support and monitor, engage in individual and jacob milieu activity, returning to the least restrictive environment when psychiatrically stable. DEANNA ALLISON MD CM:PNTRANS [id number] DEANNA ALLISON MD 02/22/18 1358 interface
--- NOTE | ~2018-02-18 | WRIGHTHP ---
[place], [place] PATIENT HISTORY AND PHYSICAL EXAM NAME: CHELA JAIN UNIT #: [id number] ROOM: 311 DOCTOR: DEANNA ALLISON MD BIRTHDATE: [birth year] DOS: 02/19/2018 CHIEF COMPLAINT: "Oh, you know why I am here. They all want me . I am going to ." HISTORY OF PRESENT ILLNESS: This is a 67-year-old white female who was sent here on an involuntary basis from [facility]. The patient had presented there threatening to overdose on Seroquel. The patient does believe that she is going to be euthanized soon. She believes that no one in her family loves her and especially her son wants her to be . She also reported to them at [facility] that she is contracted ocular herpes when somebody stroked her face with their hands. She is very, very delusional and very depressed. She feels that the only way out of this is if she takes her own life. She is admitted now to rule out any organic factors to attempt to stabilize on medication, returning to the least restrictive environment when psychiatrically stable. PAST MEDICAL HISTORY: Remarkable for diabetes, hyperlipidemia, hypertension, spastic bladder, nicotine abuse, vitamin D deficiency and a reported history of depression and schizophrenia. SOCIAL HISTORY: The patient does not drink alcohol. She does not use illicit drugs and she has been a cigarette smoker since the age of 13. ALLERGIES: She lists allergies to PENICILLIN and APPLE JUICE. MENTAL STATUS: She is alert and oriented to person, place and time. Mood is overwhelmingly depressed. Affect is flat, blunted with anxious overtones. She is grossly delusional and very nihilistic in her thinking. She believes that everyone is plotting against her, talking about her, laughing about her and planning to kill her. All the food here and drink are poisoned. She has no reason to leave her room. There is no gross elle, but the psychosis is significant at the present time. Memory for the most part is intact. DIAGNOSIS: Schizoaffective disorder. PLAN: I have discontinued her Lexapro and her Invega at the present time. I have started her on Remeron 15 mg at bedtime and Latuda, which I will increase from 40 to 80 mg at bedtime. We will attempt to engage in individual and jacob milieu activity, returning then to the least restrictive environment when psychiatrically stable. [place], [place] PATIENT HISTORY AND PHYSICAL EXAM NAME: CHELA JAIN UNIT #: [id number] ROOM: [facility] DOCTOR: DEANNA ALLISON MD BIRTHDATE: [birth year] DEANNA ALLISON MD CM:HISPHYS:PATIENT HISTORY AND PHYSICAL EXAMINATION 6 DEANNA ALLISON MD 02/19/18 0948 interface
--- NOTE | ~2018-02-18 | PR ---
[place], [place] PROGRESS NOTE NAME: CHELA JAIN UNIT #: [id number] ROOM: 311 DOCTOR: SORAIDA WASHINGTON MD BIRTHDATE: [birth year] DOS: 02/20/2018 SUBJECTIVE: The patient seen and spoke with the staff. Per staff, the patient stays isolated, talks about dying, but did not express any explicit thoughts of hurting herself. The patient was in the room, pleasant, cooperative, somewhat guarded. Reports being depressed and with fleeting suicidal ideation, but no intent or plan. She is compliant with her medication, did not have any side effects. MENTAL STATUS EXAMINATION: Pleasant and cooperative. Described her mood as "down." Affect was flat, constricted. Thought process goal directed. No flight of ideas, loosening of association. She denied auditory or visual hallucination. No delusion or paranoia noted. She has fleeting suicidal ideation, but no intent or plan. Denied any homicidal ideation, intent or plan. ASSESSMENT: Major depressive disorder, recurrent without psychotic feature. PLAN: 1. Continue current medication and care. 2. Continue redirection. 3. Supportive care. 4. Encourage activities and groups. SORAIDA WASHINGTON MD CM:PNTRANS [id number] SORAIDA WASHINGTON MD 02/21/18 1429 interface
[~2018-02-18 16:24] MED LIST: AMINOPHYLLIN200 MG PO; INVEGA9 MG PO; LEXAPRO10 MG PO; Vitamin D PO
[2018-02-18] MEDS ORDERED: LIPITOR40 MG PO (17:49)
[2018-02-18] MEDS ORDERED: ZOCOR40 MG PO (17:49)
[2018-02-18] MEDS ORDERED: METFORMIN ER500 MG PO (17:50)
[2018-02-18] MEDS ORDERED: ABILIFY2 MG PO (17:50)
[2018-02-18] MEDS ORDERED: PRINIVIL10 MG PO (17:50)
[2018-02-18] MEDS ORDERED: SEROQUEL50 MG PO (17:51)
[2018-02-18 18:55] VITALS: BP 158/77
[2018-02-18 21:28] VITALS: BP 158/77
[2018-02-19 07:12] LABS: BASO % 0.4 % (0.0-1.0); EOS # 0.2 10*3/uL (0.0-0.4); EOS % 1.5 % (1.0-4.0); HEMATOCRIT 43.8 % (37.0-47.0); HEMOGLOBIN 14.4 g/dl (12.0-16.0); LYMPH # 3.3 10*3/uL (1.3-4.4); LYMPH % 34.4 % (27.0-41.0); MEAN CELL VOLUME 94.6 fl (81.0-99.0); MEAN CORPUSCULAR HGB 31.1 pg (27.0-31.0); MEAN CORPUSCULAR HGB CONC 32.9 g/dl (33.0-37.0); MEAN PLATELET VOLUME 10.5 fl (9.6-12.3); MONO # 0.8 10*3/uL (0.1-1.0); MONO % 8.1 % (3.0-9.0); NEUT # 5.4 10*3/uL (2.3-7.9); NEUT % 55.3 % (47.0-73.0); PLATELET COUNT AUTOMATED 247 10*3/uL (130-400); RED BLOOD COUNT 4.63 10*6/uL (4.10-5.10); RED CELL DISTRI WIDTH 12.9 % (0-14.5); WHITE BLOOD COUNT 9.7 10*3/uL (4.8-10.8)
[2018-02-19 07:55] VITALS: BP 131/63
[2018-02-19 08:01] LABS: ALBUMIN 3.8 gm/dl (3.1-4.5); ALKALINE PHOSPHATASE 68 U/L (45-117); BUN 13 mg/dl (7-24); CHLORIDE 103 mmol/L (98-107); CHOLESTEROL 168 mg/dL (<200); CREATININE 0.85 mg/dL (0.55-1.02); HDL CHOLESTEROL 47 mg/dl (40-60); LDL CHOLESTEROL 78 mg/dL (9-159); POTASSIUM 4.1 mmol/L (3.5-5.1); SGOT/AST 18 IU/L (3-35); SGPT/ALT 39 U/L (12-78); SODIUM 140 mmol/L (136-145); TOTAL PROTEIN 7.6 gm/dL (6.4-8.2); TRIGLYCERIDES 217 mg/dl (<150); VLDL CHOLESTEROL 43 mg/dL (6-40)
[2018-02-19 08:31] LABS: VITAMIN D, 25-HYDROXY 26.3 ng/mL (30-100)
[2018-02-19 17:33] LABS: CLARITY SL CLOUDY (CLEAR); COLOR YELLOW (YELLOW); GLUCOSE 2+ (NEGATIVE)
[2018-02-19 17:34] LABS: BACTERIA 2+; BILIRUBIN NEGATIVE (NEGATIVE); BLOOD TRACE-LYSED (NEGATIVE); KETONE NEGATIVE (NEGATIVE); LEUKO ESTERASE TRACE (NEGATIVE); NITRITE NEGATIVE (NEGATIVE); UROBILINOGEN 0.2 E.U./dl (0.2-1.0); WBC TNTC wbc/hpf (0-5)
[2018-02-19 19:54] VITALS: BP 148/73
[2018-02-20 07:33] VITALS: BP 140/82
[2018-02-20 20:00] VITALS: BP 143/72
[2018-02-21 08:12] VITALS: BP 121/73
[2018-02-21 20:00] VITALS: BP 131/68
[2018-02-21 20:07] VITALS: BP 131/68
[2018-02-22 07:51] VITALS: BP 134/81
[2018-02-22 19:47] VITALS: BP 123/64
[2018-02-23 07:59] VITALS: BP 121/70
[2018-02-23 20:12] VITALS: BP 125/56
[2018-02-24 08:03] VITALS: BP 116/69
[2018-02-24 20:25] VITALS: BP 106/87
[2018-02-25 08:11] VITALS: BP 116/60
[2018-02-25 20:18] VITALS: BP 129/74
[2018-02-26 08:13] VITALS: BP 123/78
[2018-02-26] MEDS ORDERED: ZINC SULFATE220 MG PO (11:05)
[2018-02-26] MEDS ORDERED: PALIPERIDONE ER3 MG PO (11:05)
[2018-02-26] MEDS ORDERED: LATU120T PO (11:05)
[2018-02-26] MEDS ORDERED: LISINOPRIL5 MG PO (12:03)
== END 2018-02-26 13:09 | disposition home or self-care (01) | DRG 885 ==
LOC: 3N 16:24
PROVIDERS: Psychiatry & Neurology Psychiatry
DX: F25.9 Schizoaffective disorder, unspecified (principal); R45.851 Suicidal ideations; E11.65 Type 2 diabetes mellitus with hyperglycemia; F33.9 Major depressive disorder, recurrent, unspecified; Z68.30 Body mass index [BMI] 30.0-30.9, adult; F22 Delusional disorders; F29 Unspecified psychosis not due to a substance or known physiological condition; E78.5 Hyperlipidemia, unspecified; I10 Essential (primary) hypertension; F17.210 Nicotine dependence, cigarettes, uncomplicated; N32.89 Other specified disorders of bladder; E55.9 Vitamin D deficiency, unspecified; E66.9 Obesity, unspecified; Z88.0 Allergy status to penicillin; Z91.018 Allergy to other foods; Z90.710 Acquired absence of both cervix and uterus; Z87.440 Personal history of urinary (tract) infections; Z79.899 Other long term (current) drug therapy; Z80.1 Family history of malignant neoplasm of trachea, bronchus and lung